=== PATIENT | male | born 1995 ===

== ENCOUNTER 2018-12-22 17:44 | Emergency (ER) | payer SELFPAY ==
--- NOTE | 2018-12-22 18:31 | NUR ---
DR ANTHONY TO ROOM
[2018-12-22] MEDS ORDERED: methylPREDNISolone 125 MG (Solu-MEDROL) VIAL IM ONE (18:45)
[2018-12-22] MEDS ORDERED: KETOROLAC 30 MG/ML VIAL IM ONE (18:45)
--- NOTE | 2018-12-22 18:47 | ED Headache ---
General Chief Complaint: General Problems/Pain Stated Complaint: R SIDE FACIAL PAIN/EYE REDNESS/JAW ISSUES Nursing Triage Note: R eye is red, has R sided facial pain, states he is having problems with eating on R side of mouth and drinking with R side of mouth Nursing Sepsis Screen: No Definite Risk Source: patient, family Exam Limitations: language barrier ([place] as a second language) History of Present Illness Date Seen by Provider: Dec 22, 2018 Time Seen by Provider: 18:29 Initial Comments Patient presents to ER by private conveyance with his and child and chief complaint of 2 days progressively worsening headache, right facial droop, pain in the right side of his face and difficulty with water coming out of the right side of his mouth tonight. He has no history of CVA heart attack or Milan's palsy. He's tried Tylenol couple times with minimal relief of his pain. He has no significant medical history or surgical history and does not take any medications nor have allergies. Allergies and Home Medications Allergies Coded Allergies: No Known Drug Allergies (Unverified , 12/22/18) Patient Home Medication List Home Medication List Reviewed: Yes Review of Systems Review of Systems Constitutional: No chills, No diaphoresis, No fever Eyes: Denies Blindness, Denies Blurred Vision Ears, Nose, Mouth, Throat: denies ear pain, denies ear discharge Respiratory: No cough, No short of breath Cardiovascular: No chest pain, No edema Gastrointestinal: No abdominal pain, No nausea, No vomiting Genitourinary: No discharge, No dysuria Past Dskbxfd-Avmcib-Wfliwx Hx Patient Social History Alcohol Use: Denies Use Recreational Drug Use: No 2nd Hand Smoke Exposure: No Recent Foreign Travel: No Contact w/Someone Who Travel: No Recent Infectious Disease Expo: No Recent Hopitalizations: No Immunizations Up To Date Tetanus Booster (TDap): Unknown Seasonal Allergies Seasonal Allergies: No Past Medical History Surgeries: No Respiratory: No Cardiac: No Neurological: No Genitourinary: No Gastrointestinal: No Musculoskeletal: No Endocrine: No HEENT: No Cancer: No Psychosocial: No Integumentary: No Blood Disorders: No Physical Exam Vital Signs Vital Signs - First Documented 12/22/18 18:23 Temp 36.0 Pulse 72 Resp 18 B/P (MAP) 151/81 (104) Capillary Refill : Less Than 3 Seconds Height, Weight, BMI Height: '" Weight: lbs. oz. kg; BMI Method: General Appearance: WD/WN, mild distress HEENT: PERRL/EOMI, normal ENT inspection, TMs normal, pharynx normal Neck: non-tender, full range of motion, supple, normal inspection Cardiovascular: normal peripheral pulses, regular rate, rhythm Respiratory: lungs clear, normal breath sounds, no respiratory distress, no accessory muscle use Crainal Nerves: normal hearing, normal speech, PERRL, facial droop (right side involving the right forehead) Motor/Sensory: other (tenderness to tinel's tap over cranial nerve VII preauricular) Skin: rash (erythematous) Progress/Results/Core Measures Results/Orders My Orders Orders - YANETH ANTHONY Ketorolac Injection (Toradol Injection) (12/22/18 18:45) Methylprednisolone Sod Succ (Solu-Medrol (12/22/18 18:45) Vital Signs/I&O 12/22/18 18:23 Temp 36.0 Pulse 72 Resp 18 B/P (MAP) 151/81 (104) Blood Pressure Mean: 104 Progress Progress Note : Time: 18:44 Progress Note 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 No vesicle seen. We'll put him on valacyclovir and give him a shot of steroids and Toradol tonight. Departure Impression Primary Impression: Milan's palsy Disposition: 01 HOME, SELF-CARE Condition: Stable Departure-Patient Inst. Decision time for Depature: 18:45 Referrals: NO,LOCAL PHYSICIAN (PCP/Family) Primary Care Physician Patient Instructions: Milan's Palsy (DC) Add. Discharge Instructions: Tylenol 1000 g every 8 hours as needed for pain. Ibuprofen 800 mg every 8 hours as needed for pain. Valacyclovir 1 tablet 3 times a day for the next week. Prednisone 40 mg twice a day for the next 4 days. Then prednisone 20 mg twice a day for the next 3 days. supervisor fabrication a bottle of eye moisturizing drops to be used keep your right eye moist as needed. All discharge instructions reviewed with patient and/or family. Voiced understanding. Scripts Prednisone (Prednisone) 20 Mg Tab 40 MG PO BID for 7 Days, #22 TAB 0 Refills 40mg bid x 4 days then 20mg bid x 3 days Prov: YANETH ANTHONY 12/22/18 Valacyclovir HCl (Valacyclovir) 1,000 Mg Tablet 1000 MG PO TID for 7 Days, #28 TAB 0 Refills Prov: YANETH ANTHONY 12/22/18 YANETH ANTHONY Dec 22, 2018 18:47
[2018-12-22] MEDS ORDERED: VALA1000 PO (18:48)
[2018-12-22] MEDS ORDERED: PRD20T PO (18:48)
[2018-12-22 18:59] VITALS: BP 144/92
== END 2018-12-22 18:59 | disposition home or self-care (01) ==
LOC: ER 17:46
DX: G51.0 Bell's palsy (principal)
CPT/HCPCS: 99284

== ENCOUNTER 2021-12-05 20:35 | Emergency (ER) | payer SELFPAY ==
[~2021-12-05 20:35] MED LIST: PRD20T PO; VALA10007 PO
--- NOTE | 2021-12-05 21:07 | ED Abdominal Pain ---
General Stated Complaint: STOMACH PAIN History of Present Illness Date Seen by Provider: Dec 05, 2021 Time Seen by Provider: 21:07 Initial Comments Patient reports that he has been having nausea, vomiting, diarrhea and abdominal pain for the past 3-4 days. Denies fever that he is aware of. Has been trying an herbal tea at home with minimal relief of symptoms. Denies recent sick contacts. No history of similar symptoms. Does report dysuria in addition. Denies penile discharge. Timing/Duration: 2-3 Days Severity/Quality: Moderate Location: Generalized Abdomen Radiation: No Radiation Activities at Onset: None Modifying Factors: Worsens With Eating, Worsens With Palpation; Improves With Resting Associated Symptoms: No Chest Pain, No Headache, No Heartburn; Nausea/Vomiting; No Swelling/Mass in Abdomen (ADRI RAMIRES APRN) Allergies and Home Medications Allergies Coded Allergies: No Known Drug Allergies (Unverified , 12/22/18) Patient Home Medication List Home Medication List Reviewed: Yes (ADRI RAMIRES APRN) Prednisone (Prednisone) 20 Mg Tab, 40 MG PO BID Prescribed by: YANETH ANTHONY on 12/22/181847 Valacyclovir HCl (Valacyclovir) 1,000 Mg Tablet, 1,000 MG PO TID Prescribed by: YANETH ANTHONY on 12/22/181847 Review of Systems Review of Systems Constitutional: No chills, No dizziness, No fever, No weakness EENTM: No Symptoms Reported Respiratory: Denies Cough, Denies Shortness of Air Cardiovascular: Denies Chest Pain, Denies Edema, Denies Lightheadedness Gastrointestinal: Abdominal Pain; Denies Constipated; Diarrhea, Nausea, Vomiting Genitourinary: Burning; Denies Discharge, Denies Frequency Musculoskeletal: no symptoms reported Skin: no symptoms reported (ADRI RAMIRES APRN) All Other Systems Reviewed Negative Unless Noted: Yes (ADRI RAMIRES APRN) Past Tavrutw-Jdalhv-Ztzqlg Hx Immunizations Up To Date Tetanus Booster (TDap): Unknown (ADRI RAMIRES APRN) Seasonal Allergies Seasonal Allergies: No (ADRI RAMIRES APRN) Past Medical History Surgeries: No Respiratory: No Cardiac: No Neurological: No Genitourinary: No Gastrointestinal: No Musculoskeletal: No Endocrine: No HEENT: No Cancer: No Psychosocial: No Integumentary: No Blood Disorders: No (ADRI RAMIRES APRN) Family Medical History Reviewed Nursing Family Hx (ADRI RAMIRES APRN) Physical Exam Vital Signs Vital Signs - First Documented 12/05/21 21:03 Temp 37.1 Pulse 75 Resp 16 B/P (MAP) 150/103 (119) Pulse Ox 100 O2 Delivery Room Air (KELLY STONE MD) Vital Signs Capillary Refill : (ADRI RAMIRES APRN) Height/Weight/BMI Height: '" Weight: lbs. oz. kg; BMI Method: General Appearance: mild distress (pain) Respiratory: chest non-tender, lungs clear, normal breath sounds, no respiratory distress, no accessory muscle use Cardiovascular: regular rate, rhythm, no edema Gastrointestinal: soft; No distended, No guarding, No rebound; tenderness (diffuse tenderness throughout, no localized to one area) Extremities: normal range of motion, non-tender, normal inspection Neurologic/Psychiatric: alert, normal mood/affect, oriented x 3 Skin: normal color, warm/dry (ADRI RAMIRES APRN) Progress/Results/Core Measures Results/Orders Lab Results Laboratory Tests Test 12/05/21 21:28 12/05/21 22:20 Range/Units White Blood Count 13.0 H 4.3-11.0 10^3/uL Red Blood Count 5.32 4.30-5.52 10^6/uL Hemoglobin 15.3 13.3-17.7 g/dL Hematocrit 45 40-54 % Mean Corpuscular Volume 84 80-99 fL Mean Corpuscular Hemoglobin 29 25-34 pg Mean Corpuscular Hemoglobin Concent 34 32-36 g/dL Red Cell Distribution Width 12.9 10.0-14.5 % Platelet Count 236 130-400 10^3/uL Mean Platelet Volume 11.2 9.0-12.2 fL Immature Granulocyte % (Auto) 0 % Neutrophils (%) (Auto) 82 H 42-75 % Lymphocytes (%) (Auto) 11 L 12-44 % Monocytes (%) (Auto) 5 0-12 % Eosinophils (%) (Auto) 1 0-10 % Basophils (%) (Auto) 1 0-10 % Neutrophils # (Auto) 10.7 H 1.8-7.8 10^3/uL Lymphocytes # (Auto) 1.4 1.0-4.0 10^3/uL Monocytes # (Auto) 0.6 0.0-1.0 10^3/uL Eosinophils # (Auto) 0.2 0.0-0.3 10^3/uL Basophils # (Auto) 0.1 0.0-0.1 10^3/uL Immature Granulocyte # (Auto) 0.0 0.0-0.1 10^3/uL Sodium Level 138 135-145 MMOL/L Potassium Level 3.9 3.6-5.0 MMOL/L Chloride Level 104 98-107 MMOL/L Carbon Dioxide Level 22 21-32 MMOL/L Anion Gap 12 5-14 MMOL/L Blood Urea Nitrogen 13 7-18 MG/DL Creatinine 0.91 0.60-1.30 MG/DL Estimat Glomerular Filtration Rate 118 BUN/Creatinine Ratio 14 Glucose Level 116 H 70-105 MG/DL Calcium Level 9.2 8.5-10.1 MG/DL Corrected Calcium 9.2 8.5-10.1 MG/DL Total Bilirubin 0.4 0.1-1.0 MG/DL Aspartate Amino Transf (AST/SGOT) 17 5-34 U/L Alanine Aminotransferase (ALT/SGPT) 24 0-55 U/L Alkaline Phosphatase 99 40-136 U/L Total Protein 7.6 6.4-8.2 GM/DL Albumin 4.0 3.2-4.5 GM/DL Amylase Level 89 25-125 U/L Lipase 75 8-78 U/L Urine Color YELLOW Urine Clarity CLEAR Urine pH 8.0 5-9 Urine Specific Hazel <=1.005 1.016-1.022 Urine Protein NEGATIVE NEGATIVE Urine Glucose (UA) NEGATIVE NEGATIVE Urine Ketones NEGATIVE NEGATIVE Urine Nitrite NEGATIVE NEGATIVE Urine Bilirubin NEGATIVE NEGATIVE Urine Urobilinogen 0.2 < = 1.0 MG/DL Urine Leukocyte Esterase NEGATIVE NEGATIVE Urine RBC (Auto) NEGATIVE NEGATIVE Urine RBC NONE /HPF Urine WBC NONE /HPF Urine Squamous Epithelial Cells RARE /HPF Urine Crystals NONE /LPF Urine Bacteria NEGATIVE /HPF Urine Casts NONE /LPF Urine Mucus NEGATIVE /LPF Urine Culture Indicated NO (KELLY STONE MD) Vital Signs/I&O 12/05/21 12/05/21 21:03 23:09 Temp 37.1 Pulse 75 67 Resp 16 18 B/P (MAP) 150/103 (119) 136/83 Pulse Ox 100 97 O2 Delivery Room Air Room Air (KELLY STONE MD) Progress Progress Note : Progress Note Patient with generalized abdominal pain, nausea, vomiting and diarrhea that started a few days ago. Will order labs, IVF, pain medications and CT scan. Will continue to monitor until imaging and labs resulted. 2249: Labs and imaging were reassuring at this time. Patient reports that he feels a lot better at this time but is still having some abdominal pain. Instructed that symptoms likely viral in origin. His WBC count was slightly elevated but is likely related to recent vomiting. No signs of acute abdomen appreciated. Requesting work note. Home discharge instructions reviewed with patient along with reasons to return to the ER. (ADRI RAMIRES APRN) Diagnostic Imaging Diagonstic Imaging: CT Plain Films/CT/US/NM/MRI: abdomen, pelvis Comments NAME: NORMA RIGGINS [facility] REC#: [id number] PT STATUS: REG ER : 1995 PHYSICIAN: ADRI RAMIRES APRN ADMIT DATE: 12/05/21/ER Draft Date of Exam:12/05/21 CT ABDOMEN/PELVIS W PROCEDURE: CT abdomen and pelvis with contrast. TECHNIQUE: Multiple contiguous axial images were obtained through the abdomen and pelvis after administration of intravenous contrast. Auto Exposure Controls were utilized during the CT exam to meet ALARA standards for radiation dose reduction. All CT scans use one or more of the following dose optimizing techniques: automated exposure control, MA and/or KvP adjustment based on patient size and exam type or iterative reconstruction. INDICATION: Abdominal pain. Nausea and vomiting. COMPARISON: None. FINDINGS: Calcified granuloma in the right lung base. Liver, gallbladder, pancreas, spleen, adrenals, kidneys, collecting systems and bladder are negative. Mild colonic diverticulosis without evidence of active diverticulitis. Normal appendix. No free intraperitoneal air or fluid. No lymphadenopathy. No evidence of bowel obstruction. No acute osseous finding. IMPRESSION: 1. No acute CT finding in the abdomen or pelvis. 2. Mild colonic diverticulosis without evidence of active diverticulitis. Dictated on workstation # [id number] Dict: 12/05/212219 Trans: 12/05/212223 [facility] [id number] Interpreted by: ADINA KIM MD Electronically signed by: (ADRI RAMIRES APRN) Departure Impression Primary Impression: Gastroenteritis Disposition: 01 HOME, SELF-CARE Condition: Stable Departure-Patient Inst. Decision time for Depature: 22:51 (ADRI RAMIRES APRN) Referrals: NO,LOCAL PHYSICIAN (PCP/Family) Primary Care Physician Patient Instructions: Viral Gastroenteritis in Adults Add. Discharge Instructions: 1. Home and rest. 2. Push fluids. 3. Alternate Tylenol/Ibuprofen as needed for pain. 4. [place] diet and advance as tolerated. 5. Follow up with PCP as needed. 6. Return here if worse or concerns. Work/School Note: Work Release Form Date Seen in the Emergency Department: Dec 05, 2021 Return to Work: Dec 07, 2021 Restrictions: No Restrictions ATTENDING PHYSICIAN NOTE: I was physically present as attending physician in the emergency department during the care of this patient, but I was not directly involved in the decision making or delivery of care for this patient. (KELLY STONE MD) ADRI RAMIRES APRN Dec 05, 2021 21:07 KELLY STONE MD Dec 07, 2021 06:53
[2021-12-05] MEDS ORDERED: NS IV 1000 ML 1,000 ML IV STA (21:14)
[2021-12-05] MEDS ORDERED: fentaNYL INJ 100 MCG/2 ML AMP IVP ONE (21:15)
[2021-12-05] MEDS ORDERED: ONDANSETRON 4 MG/2 ML (SDV) Z0FRAN IVP ONE (21:15)
[2021-12-05] MEDS ORDERED: NS 100 ML (IVPB) BAG IV ONE (21:30)
[2021-12-05] MEDS ORDERED: IOHEXOL 350 MG/ML 100 ML (OMNIPAQUE 350) VIAL IV ONE (21:30)
[2021-12-05] MEDS ORDERED: HOLD METFORMIN - RECEIVED CONTRAST 20 ML VIAL IV SCH (21:30)
[2021-12-05 21:35] LABS: BASOPHILS # (AUTO) 0.1 10^3/uL (0.0-0.1); BASOPHILS % (AUTO) 1 % (0-10); EOSINOPHILS # (AUTO) 0.2 10^3/uL (0.0-0.3); EOSINOPHILS % (AUTO) 1 % (0-10); HEMATOCRIT 45 % (40-54); HEMOGLOBIN 15.3 g/dL (13.3-17.7); LYMPHOCYTES # (AUTO) 1.4 10^3/uL (1.0-4.0); LYMPHOCYTES % (AUTO) 11 % (12-44); MEAN CORPUSCULAR HEMOGLOBIN 29 pg (25-34); MEAN CORPUSCULAR HGB CONC 34 g/dL (32-36); MEAN CORPUSCULAR VOLUME 84 fL (80-99); MEAN PLATELET VOLUME 11.2 fL (9.0-12.2); MONOCYTES # (AUTO) 0.6 10^3/uL (0.0-1.0); MONOCYTES % (AUTO) 5 % (0-12); NEUTROPHILS # (AUTO) 10.7 10^3/uL (1.8-7.8); NEUTROPHILS % (AUTO) 82 % (42-75); PLATELET COUNT 236 10^3/uL (130-400)
--- NOTE | 2021-12-05 22:24 | Diagnostic Imaging Report ---
PROCEDURE: CT abdomen and pelvis with contrast. TECHNIQUE: Multiple contiguous axial images were obtained through the abdomen and pelvis after administration of intravenous contrast. Auto Exposure Controls were utilized during the CT exam to meet ALARA standards for radiation dose reduction. All CT scans use one or more of the following dose optimizing techniques: automated exposure control, MA and/or KvP adjustment based on patient size and exam type or iterative reconstruction. INDICATION: Abdominal pain. Nausea and vomiting. COMPARISON: None. FINDINGS: Calcified granuloma in the right lung base. Liver, gallbladder, pancreas, spleen, adrenals, kidneys, collecting systems and bladder are negative. Mild colonic diverticulosis without evidence of active diverticulitis. Normal appendix. No free intraperitoneal air or fluid. No lymphadenopathy. No evidence of bowel obstruction. No acute osseous finding. IMPRESSION: 1. No acute CT finding in the abdomen or pelvis. 2. Mild colonic diverticulosis without evidence of active diverticulitis. Dictated by: Dictated on workstation # [id number]
[2021-12-05 22:27] LABS: BILIRUBIN,URINE NEGATIVE (NEGATIVE); CLARITY,URINE CLEAR; COLOR,URINE YELLOW; GLUCOSE, URINE (UA) NEGATIVE (NEGATIVE); KETONES,URINE NEGATIVE (NEGATIVE); LEUKOCYTE ESTERASE ,URINE NEGATIVE (NEGATIVE); NITRITE,URINE NEGATIVE (NEGATIVE); PROTEIN,URINE NEGATIVE (NEGATIVE)
[2021-12-05 22:33] LABS: BACTERIA,URINE NEGATIVE /HPF; SQUAMOUS EPITHELIAL CELL,UR RARE /HPF
[2021-12-05 22:47] LABS: BILIRUBIN,TOTAL 0.4 MG/DL (0.1-1.0); CALCIUM 9.2 MG/DL (8.5-10.1); CREATININE SERUM 0.91 MG/DL (0.60-1.30); POTASSIUM 3.9 MMOL/L (3.6-5.0); TOTAL PROTEIN 7.6 GM/DL (6.4-8.2)
[2021-12-05 23:09] VITALS: BP 136/83
== END 2021-12-05 23:09 | disposition home or self-care (01) ==
LOC: EDUNIT# 20:35 → ER 20:37
DX: K52.9 Noninfective gastroenteritis and colitis, unspecified (principal); Z28.310 Unvaccinated for COVID-19
CPT/HCPCS: 36415; 74177; 80053; 81000; 82150; 83690; 85025